=== PATIENT | female | born 1975 | race Caucasian/White ===

== ENCOUNTER 2021-11-04 11:33 | Emergency (ER) | payer SELFPAY ==
[~2021-11-04] VITALS: Ht 160 cm; Wt 66.2 kg
[2021-11-04 12:11] VITALS: BP_SYST 142
--- NOTE | 2021-11-04 14:12 | NUR ---
DR WATTERS TO TRIAGE ROOM TO EVALUATE PT.
[2021-11-04] MEDS ORDERED: LORazepam 1 MG TABLET PO ONE (14:45)
[2021-11-04] MEDS ORDERED: IBUPROFEN 800 MG TABLET PO ONE (14:45)
--- NOTE | 2021-11-04 16:00 | NUR ---
Pt brought by self, A&Ox4, pt presents to ER with R neck pain, R leg pain, skin pink and warm, cap refill <3, VSS, respirations even and unlabored, will cont to monitor.
[2021-11-04] MEDS ORDERED: HYDROcodone/ACETAMIN 5-325 MG TAB (NORCO/ VICODIN) PO ONE (17:00)
[2021-11-04] MEDS ORDERED: HYDR-3917 PO (17:16)
[2021-11-04] MEDS ORDERED: IBUP-1969 PO (17:16)
--- NOTE | 2021-11-04 17:32 | NUR ---
Patient given written and verbal discharge instructions and verbalizes understanding. ER MD discussed with patient the results and treatment provided. Patient in stable condition. ID arm band removed. Rx of Hydrocodone and Ibuprofen given. Patient educated on pain management and to follow up with PMD. Pain Scale 2/10 . Opportunity for questions provided and answered. Medication side effect fact sheet provided.
[2021-11-04 17:33] VITALS: BP_SYST 142
== END 2021-11-04 17:32 | disposition home or self-care (01) ==
LOC: SED 11:33
DX: M43.6 Torticollis (principal); M54.2 Cervicalgia; M79.661 Pain in right lower leg; R03.0 Elevated blood-pressure reading, without diagnosis of hypertension; Z79.899 Other long term (current) drug therapy
CPT/HCPCS: 36415; 72125-TC; 76376; 81025; 84702; 99284